=== PATIENT | female | born 1990 | race Caucasian/White ===

== ENCOUNTER 2022-08-08 18:58 | Emergency (ER) | payer SELFPAY ==
[~2022-08-08] VITALS: Ht 154.9 cm; Wt 78.5 kg
[2022-08-08 19:14] VITALS: BP 140/81
--- NOTE | 2022-08-08 19:51 | NUR ---
CODE STROKE INTIATED BY LYNDSEY MORSE.
--- NOTE | 2022-08-08 19:52 | NUR ---
PT TO BED #7
--- NOTE | 2022-08-08 19:57 | NUR ---
urine walked to lab
[2022-08-08] MEDS ORDERED: NACL 0.9% 1,000 ML IV ONE (20:00)
[2022-08-08] MEDS ORDERED: PROCHLORPERAZINE 10 MG/2 ML VIAL IVP SCH (20:00)
--- NOTE | 2022-08-08 20:01 | NUR ---
PT TO CT VIA ANTONIA
[2022-08-08 20:42] LABS: BASOPHILS % (AUTO) 0.3 % (0.0-2.0); EOSINOPHILS # (AUTO) 0.1 K/uL (0-0.4); EOSINOPHILS % (AUTO) 0.6 % (0.0-4.0); HEMATOCRIT 38.4 % (36-48); HEMOGLOBIN 13.1 g/dL (12.0-16.0); LYMPHOCYTES % (AUTO) 21.3 % (20.5-51.1); MEAN CORPUSCULAR HEMOGLOBIN 29 pg (27-31); MEAN CORPUSCULAR HGB CONC 34 g/dL (33-37); MEAN CORPUSCULAR VOLUME 86.5 fL (80-94); MONOCYTES # (AUTO) 0.6 K/uL (0.8-1.0); MONOCYTES % (AUTO) 6.2 % (1.7-9.3); NEUTROPHILS # (AUTO) 6.7 K/uL (1.8-7.7); NEUTROPHILS % (AUTO) 71.6 % (42.2-75.2); PLATELET COUNT (AUTO) 319 K/uL (140-450); RED BLOOD CELL COUNT(AUTO) 4.44 MIL/uL (4.20-5.40); RED CELL DISTRIBUTION WIDTH 13.4 % (11.6-13.7); WHITE BLOOD COUNT (AUTO) 9.4 K/uL (4.8-10.8)
[2022-08-08 20:43] LABS: APPEARANCE,URINE CLEAR (CLEAR); BILIRUBIN,URINE NEGATIVE (NEGATIVE); BLOOD, URINE NEGATIVE (NEGATIVE); COLOR,URINE YELLOW (YELLOW); LEUKOCYTE ESTERASE ,URINE NEGATIVE (NEGATIVE); NITRITE, URINE NEGATIVE (NEGATIVE); UGLUCOSE NEGATIVE (NEGATIVE)
[2022-08-08 21:05] LABS: ALBUMIN 3.5 g/dL (3.4-5.0); ANION GAP 12.8 (8-16); ASPARTATE AMINOTRANSFERASE 18 U/L (15-37); CARBON DIOXIDE 25.7 mmol/L (21-32); CHLORIDE 102 mmol/L (98-107); CREATININE 0.9 mg/dL (0.6-1.3); GFR ARICAN-AMERICAN 93 mL/min (>90); GLUCOSE 118 mg/dL (74-106); POTASSIUM 3.5 mmol/L (3.5-5.1); SODIUM SERUM 137 mmol/L (136-145); TOTAL BILIRUBIN 0.3 mg/dL (0.0-1.0); UREA NITROGEN, BLOOD 16 mg/dL (7-18)
--- NOTE | 2022-08-08 21:05 | NUR ---
JAEL CONSULT REQUEST SUBMITTED
[2022-08-08 21:11] LABS: PROTHROMBIN TIME 9.7 secs (10.8-13.4)
[2022-08-08] MEDS ORDERED: diphenhydrAMINE 50 MG/ML VIAL IVP ONE (21:25)
[2022-08-08] MEDS ORDERED: KETOROLAC 15 MG/ML VIAL IVP ONE (21:25)
[2022-08-08] MEDS ORDERED: FLUORESCEIN OPTH STRIP 1 MG OP ONE (21:30)
[2022-08-08] MEDS ORDERED: IBUP-2213 PO (21:54)
[2022-08-08 22:12] VITALS: BP 133/78
== END 2022-08-08 22:12 | disposition home or self-care (01) ==
LOC: MED 18:58
DX: H10.9 Unspecified conjunctivitis (principal); G44.89 Other headache syndrome; G50.1 Atypical facial pain; R53.1 Weakness
CPT/HCPCS: 36415; 70450; 70496; 71045; 80053; 81003; 81025; 84484; 85025; 85610; 85730; 86886; 86900; 86901; 93005; 96361; 96374; 96375; 99291; J0780; J1200; J1885; J7030; Q0092; Q9967